=== PATIENT | female | born 1955 | race Caucasian/White ===

== ENCOUNTER 2017-08-30 13:17 | Emergency (ER) | payer OTHER ==
[~2017-08-30] VITALS: Ht 154.9 cm; Wt 54.4 kg
--- NOTE | 2017-08-30 13:32 | ED CARDIAC/CP/PALPITATIONS ---
History of Present Illness General Chief Complaint: Chest Pain Stated Complaint: SOB,DIZZINESS Source: patient Exam Limitations: no limitations Vital Signs & Intake/Output Vital Signs & Intake/Output Vital Signs Date Time Temp Pulse Resp B/P B/P Pulse O2 O2 Flow FiO2 Mean Ox Delivery Rate 08/30 1810 96.8 61 16 116/59 98 Room Air 08/30 1517 97.4 56 16 124/60 98 Room Air 08/30 1359 100 08/30 1358 57 20 141/71 100 Room Air 08/30 1332 96.6 64 18 165/105 95 Room Air Allergies Coded Allergies: meperidine (From DEMEROL) (Severe, RASH, HIVES 08/30/17) Reconcile Medications Amlodipine Besylate 5 MG TABLET 1 TAB PO DAILY HTN (Reported) Amlodipine Besylate (Norvasc) 5 MG TABLET 1.5 TAB PO DAILY HTN Aspirin (Aspirin*) 81 MG TAB.CHEW 1 TAB PO DAILY CARDIAC (Reported) Atenolol 50 MG TABLET 1 TAB PO DAILY HTN (Reported) Biotin 5,000 MCG TAB.RAPDIS 1 TAB PO DAILY SUPPLEMENT (Reported) [place] (Unknown Strength) POWDER (Unknown Dose) PO DAILY SUPPLEMENT (Reported) Calcium (Elemental-Fr Calcarb) (Calcium) 600 MG CALCIUM (1,500 MG) TABLET 1 TAB PO BID SUPPLEMENT (Reported) Cholecalciferol (Vitamin D3) (Vitamin D3) 400 UNIT TABLET 2 TAB PO BID SUPPLEMENT (Reported) Cinnamon Bark (Cinnamon) 500 MG CAPSULE 2 CAP PO DAILY SUPPLEMENT (Reported) Cranberry Conc/Ascorbic Acid (Cranberry Plus Vitamin C Sftgl) 4,200 MG-20 MG CAPSULE 1 CAP PO DAILY SUPPLEMENT (Reported) Flaxseed Oil (Flax Seed Oil) (Unknown Strength) CAPSULE (Unknown Dose) PO DAILY SUPPLEMENT (Reported) Ginkgo Biloba 60 MG CAPSULE 1 CAP PO DAILY SUPPLEMENT (Reported) Glucosamine/Chondroitin Sulf A (Glucosamine-Chondroitin Cap) (Unknown Strength) CAPSULE (Unknown Dose) PO DAILY SUPPLEMENT (Reported) Turmeric Root Extract (Turmeric) 500 MG CAPSULE 1 CAP PO DAILY SUPPLEMENT ( Reported) Vitamin B Complex & Vit C No.4 (Super B Complex) (Unknown Strength) TABLET ( Unknown Dose) PO DAILY SUPPLEMENT (Reported) Triage Nurses Notes Reviewed? yes Onset: Gradual Duration: week(s): (1) Timing: recent history Associated Symptoms: LIGHTHEADED, DIZZINESS HPI: 62 year old female presents to the ER for chief complaint of intermittent chest heaviness and dizziness that worsening this morning while she was at work. She has been having episodes on and off for the past week and scheduled an appointment with Dr Lopes to discuss her symptoms. Today she became very lightheaded requiring her to hold onto the jimenez which frightened her and caused her to come for evaluation. She denies any chest pain today. Symptoms seem to be worse with change in position. No headache, blurred vision, ringing in the ears or confusion. No shortness of berath or palpitations. Past History Travel History Traveled to [place] past 21 day No Medical History Any Pertinent Medical History? see below for history Cardiovascular: hypertension Surgical History Surgical History: non-contributory Psychosocial History What is your primary language Vietnamese ETOH Use: denies use Illicit Drug Use: denies illicit drug use Family History Hx Contributory? No Review of Systems Review of Systems Constitutional: Reports: weakness. Denies: chills, fever. EENTM: Reports: no symptoms. Respiratory: Denies: cough, short of breath. Cardiovascular: Reports: chest pain. Denies: palpitations, peripheral edema, syncope. GI: Denies: abdominal pain. Genitourinary: Denies: discharge, dysuria, frequency. Musculoskeletal: Reports: no symptoms. Skin: Reports: no symptoms. Neurological/Psychological: Reports: see HPI (dizzy, lightheaded). Hematologic/Endocrine: Denies: bruising, bleeding, polyuria, polydipsia. Immunologic/Allergic: Reports: no symptoms. All Other Systems: Reviewed and Negative Physical Exam Physical Exam General Appearance: well developed/nourished, alert, awake, anxious, mild distress Head: atraumatic, normal appearance Eyes: Bilateral: normal appearance, PERRL, EOMI. Ears, Nose, Throat: normal pharynx, hearing grossly normal Neck: normal inspection, supple, full range of motion Respiratory: normal breath sounds, chest non-tender, no respiratory distress Cardiovascular: regular rate/rhythm, normal peripheral pulses Gastrointestinal: normal bowel sounds, soft, non-tender Extremities: normal inspection, normal capillary refill, normal range of motion, no edema Neurologic/Psych: no motor/sensory deficits, awake, alert, oriented x 3, normal gait Skin: intact, normal color, warm/dry Comments: NEGATIVE GODWIN-HALLPIKE TEST Core Measures ACS in differential dx? Yes CVA/TIA Diagnosis No Sepsis Present: No Sepsis Focused Exam Completed? No Progress Differential Diagnosis: AMI, aortic dissection, CVA, TIA, VERTIGO, MENIERES, URI , UNSTABLE ANGINA, HYPERTENSIVE URGENCY, HYPERTENSIVE CRISIS Plan of Care: Orders Procedure Date/time Status Regular Diet 08/31 B Active TROPONIN LEVEL 08/30 1715 Complete EKG 08/30 1715 Active MISTAKE 08/30 1340 Active Telemetry/Computer Publisher 08/30 1340 Active FingerStick- Glucose 08/30 1340 Active URINALYSIS 08/30 1340 Complete TROPONIN LEVEL 08/30 1340 Complete PARTIAL THROMBOPLASTIN TIME 08/30 1340 Complete PROTHROMBIN TIME 08/30 1340 Complete COMPREHENSIVE METABOLIC PANEL 08/30 1340 Complete CBC WITHOUT DIFFERENTIAL 08/30 1340 Complete EKG 08/30 1318 Active Laboratory Tests 08/30/17 1754: Troponin I < 0.01 08/30/17 1449: Urine Color YEL, Urine Clarity CLEAR, Urine pH 6.0, Ur Specific [place] 1.015, Urine Protein NEG, Urine Ketones NEG, Urine Nitrite NEG, Urine Bilirubin NEG, Urine Urobilinogen 0.2, Ur Leukocyte Esterase NEG, Ur Microscopic EXAM NOT REQUIRED, Urine Hemoglobin NEG, Urine Glucose NEG 08/30/17 1350: Anion Gap 14, Estimated GFR > 60, BUN/Creatinine Ratio 28.8 H, Glucose 100 H, Calcium 9.3, Total Bilirubin 0.4, AST 36, ALT 59 H, Alkaline Phosphatase 107, Troponin I < 0.01, Total Protein 6.7, Albumin 4.4, Globulin 2.3, Albumin/ Globulin Ratio 1.9, PT 11.3, INR 1.08, APTT 27, CBC w Diff NO MAN DIFF REQ, RBC 4.60, MCV 76.6 L, MCH 24.9 L, RDW 15.4 H, MPV 7.7, Gran % 70.9, Lymphocytes % 21.2, Monocytes % 6.4, Eosinophils % 1.2, Basophils % 0.3, Absolute Granulocytes 4.7, Absolute Lymphocytes 1.4, Absolute Monocytes 0.4, Absolute Eosinophils 0.1, Absolute Basophils 0, PUBS MCHC 32.[address] HEAD WNL, EKG NORMAL SINUS. SEEN AND EVALUATED BY DR REDDY IN THE ED. WILL STAY FOR REPEAT TROPONIN/EKG. REPEAT TROPONIN NEGATIVE, PATIENT FEELING MUCH BETTER. DISCUSSED BP MEDICATION CHANGES SUGGESTED BY DR REDDY AND JACKELYN WILL BEGIN MONITORING HER BLOOD PRESSURE AT HOME AND FOLLOW UP WITH DR LOPES IN THE OFFICE. Diagnostic Imaging: Viewed by Me: CT Scan. Discussed w/RAD: CT Scan. Radiology Impression: PATIENT: THOMAS RITCHIE PRESENT AGE: 62 PATIENT ACCOUNT NO: [id number] : 53 LOCATION: [facility] ORDERING PHYSICIAN: Cammy Barriga MD SERVICE DATE: 08/30/17 EXAM TYPE: CAT - CT HEAD WO IV CONTRAST EXAMINATION: CT HEAD WITHOUT CONTRAST CLINICAL INFORMATION: Headache and dizziness; question mass or intracranial hemorrhage. COMPARISON: None. TECHNIQUE: Contiguous axial imaging was performed from the skull base to vertex without intravenous administration of contrast. DLP: 549.25 mGy-cm FINDINGS: There is no evidence of acute intracranial hemorrhage or territorial infarction. No abnormal mass effect or midline shift is seen. Triplett to white matter differentiation is well preserved. No extra-axial fluid collections are identified. The ventricles are normal in size. There is no abnormal attenuation within the brain parenchyma. The osseous structures and soft tissues are normal. There are physiologic bilateral basal ganglia calcifications. The mastoid air cells and visualized portions of the paranasal sinuses are well aerated. IMPRESSION: No acute intracranial pathology. DICTATED BY: Malik Salgado MD DATE/TIME DICTATED:08/30/171517 COOPER HELPER: BRANDY DATE/TIME TRANSCRIBED:08/30/171517 CONFIDENTIAL, DO NOT COPY WITHOUT APPROPRIATE AUTHORIZATION. <Electronically signed in Other Vendor System> SIGNED BY: Malik Salgado MD 08/30/17 1526 Initial ED EKG: NSR Repeat EKG: unchanged Departure Departure Time of Disposition: 1855 Disposition: HOME OR SELF CARE Condition: Stable Clinical Impression Primary Impression: Chest pain Secondary Impressions: Vertigo Referrals: Nam CARD,Larry (PCP/Family) Rhonda CARD PHD,Himanshu Mendes Additional Instructions: INCREASE NORVASC TO 7.5 MG DAILY, STAY ON ATENOLOL CHECK YOUR BLOOD PRESSURE REGULARLY Departure Forms: Customer Survey General Discharge Information Prescriptions: Current Visit Scripts Amlodipine Besylate (Norvasc) 1.5 TAB PO DAILY #30 TAB Critical Care Note Critical Care Note Critical Care Time: non-applicable
[2017-08-30] MEDS ORDERED: AMLODIPINE BESYL5 M1 PO (13:59)
[2017-08-30] MEDS ORDERED: ASPIRIN81 M4 PO (13:59)
[2017-08-30] MEDS ORDERED: ATENOLOL50 M1 PO (13:59)
[2017-08-30 14:07] LABS: ABSOLUTE BASOPHIL COUNT 0 /CUMM (0.0-0.2); ABSOLUTE EOSINOPHIL COUNT 0.1 /CUMM (0.0-0.7); ABSOLUTE GRANULOCYTE CT 4.7 /CUMM (1.4-6.5); ABSOLUTE LYMPH COUNT 1.4 /CUMM (1.2-3.4); ABSOLUTE MONOCYTE COUNT 0.4 /CUMM (0.10-0.60); BASOPHIL % 0.3 % (0.0-2.0); EOSINOPHIL % 1.2 % (0-5); GRANULOCYTE % 70.9 % (42.2-75.2); HEMATOCRIT 35.3 % (37-47); MEAN CORPUSCULAR HGB 24.9 PG (27.0-31.0); MEAN CORPUSCULAR HGB CONC 32.5 G/DL (33.0-37.0); MEAN CORPUSCULAR VOLUME 76.6 FL (81.0-99.0); MEAN PLATELET VOLUME 7.7 FL (7.4-10.4); PLATELET COUNT 291 /CUMM (130-400); RBC DISTRIBUTION WIDTH 15.4 % (11.5-14.5); WHITE BLOOD CELL COUNT 6.7 /CUMM (4.8-10.8)
[2017-08-30 14:17] LABS: PT 11.3 SEC (9.4-12.5); PTT 27 SEC (25-37)
--- NOTE | 2017-08-30 15:26 | CT SCAN REPORT ---
EXAMINATION: CT HEAD WITHOUT CONTRAST CLINICAL INFORMATION: Headache and dizziness; question mass or intracranial hemorrhage. COMPARISON: None. TECHNIQUE: Contiguous axial imaging was performed from the skull base to vertex without intravenous administration of contrast. DLP: 549.25 mGy-cm FINDINGS: There is no evidence of acute intracranial hemorrhage or territorial infarction. No abnormal mass effect or midline shift is seen. Triplett to white matter differentiation is well preserved. No extra-axial fluid collections are identified. The ventricles are normal in size. There is no abnormal attenuation within the brain parenchyma. The osseous structures and soft tissues are normal. There are physiologic bilateral basal ganglia calcifications. The mastoid air cells and visualized portions of the paranasal sinuses are well aerated. IMPRESSION: No acute intracranial pathology.
--- NOTE | 2017-08-30 17:50 | Cons- Cardiology ---
General Information and HPI Consulting Request Date of Consult: 08/30/17 Requested By: Dr. 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 The patient had been doing well up until recently. She has recently noted episodes of lightheadedness/ dizziness with no loss of consciousness. These episodes appear to be somewhat positional, more common in the upright position. However, they also occur with rapid head movement, etc. Today, the patient noted a sense of chest pressure. She has had this symptom intermittently as well. She ultimately came to the emergency room for further evaluation. On arrival to the emergency room, the patient was hypertensive with a blood pressure of 170/105. Her heart rate was otherwise normal. Her ECG was normal. The patient had an upcoming appoint with Dr. Ellis called and arranged to have the appointment moved up to a sooner time so that she could see him for evaluation of the aforementioned symptoms. The patient notes that she is able to go to the gym and do her exercises several times a week, including elliptical training, with no exertional symptoms. The patient does not check her blood pressure at home. Allergies/Medications Allergies: Coded Allergies: meperidine (From DEMEROL) (Severe, RASH, HIVES 08/30/17) Home Med List: Amlodipine Besylate 5 MG TABLET 1 TAB PO DAILY HTN (Reported) Aspirin (Aspirin*) 81 MG TAB.CHEW 1 TAB PO DAILY CARDIAC (Reported) Atenolol 50 MG TABLET 1 TAB PO DAILY HTN (Reported) Current Medications: Current Medications Sig/Melissa Start time Last Medication Dose Route Stop Time Status Admin Meclizine HCl 12.5 MG ONCE ONE 08/30 1530 DC 08/30 PO 08/30 1531 1525 Meclizine HCl 0 .STK-MED ONE 08/30 1527 DC PO Past History Travel History Traveled to [place] past 21 day No Medical History Neurological: NONE EENT: NONE Cardiovascular: hypertension Respiratory: NONE Gastrointestinal: NONE Hepatic: NONE Renal: NONE Musculoskeletal: NONE Psychiatric: NONE Endocrine: NONE Blood Disorders: NONE Cancer(s): NONE GAME MODERATOR/Reproductive: NONE Exam & Diagnostic Data Vital Signs and I&O Vital Signs Date Time Temp Pulse Resp B/P B/P Pulse O2 O2 Flow FiO2 Mean Ox Delivery Rate 08/30 1517 97.4 56 16 124/60 98 Room Air 08/30 1359 100 08/30 1358 57 20 141/71 100 Room Air 08/30 1332 96.6 64 18 165/105 95 Room Air Intake & Output 08/30 1600 08/30 0800 08/30 0000 08/29 1600 08/29 0800 08/29 0000 Intake Total Output Total 100 Balance -100 Output, Urine 100 Patient 120 lb Weight Weight Reported by Patient Measurement Method Physical Exam: general: Well-developed, well-nourished, white female. Alert and oriented 3. Mild to moderate headache. No other acute distress. HEENT: Normal Neck: JVP normal, carotid upstrokes normal bilaterally with no bruits Chest: Clear bilaterally Heart: Regular S4, S1, S2. 1/6 systolic murmur left sternal border Abdomen: Unremarkable Extremities: Normal Peripheral vascular: Normal bilaterally Neurologic: Grossly normal/nonfocal. Mild right lateral nystagmus noted Labs/Rickey Results: Laboratory Tests 08/30 08/30 1449 1350 Chemistry Sodium (137 - 145 mmol/L) 141 Potassium (3.5 - 5.1 mmol/L) 4.1 Chloride (98 - 107 mmol/L) 102 Carbon Dioxide (22 - 30 mmol/L) 25 Anion Gap (5 - 16) 14 BUN (7 - 17 mg/dL) 23 H Creatinine (0.5 - 1.0 mg/dL) 0.8 Estimated GFR (>60 ml/min) > 60 BUN/Creatinine Ratio (7 - 25 %) 28.8 H Glucose (65 - 99 mg/dL) 100 H Calcium (8.4 - 10.2 mg/dL) 9.3 Total Bilirubin (0.2 - 1.3 mg/dL) 0.4 AST (14 - 36 U/L) 36 ALT (9 - 52 U/L) 59 H Alkaline Phosphatase (<127 U/L) 107 Troponin I (< 0.11 ng/ml) < 0.01 Total Protein (6.3 - 8.2 g/dL) 6.7 Albumin (3.5 - 5.0 g/dL) 4.4 Globulin (1.9 - 4.2 gm/dL) 2.3 Albumin/Globulin Ratio (1.1 - 2.2 %) 1.9 Coagulation PT (9.4 - 12.5 SEC) 11.3 INR (0.90 - 1.19) 1.08 APTT (25 - 37 SEC) 27 Hematology CBC w Diff NO MAN DIFF REQ WBC (4.8 - 10.8 /CUMM) 6.7 RBC (4.20 - 5.40 /CUMM) 4.60 Hgb (12.0 - 16.0 G/DL) 11.5 L Hct (37 - 47 %) 35.3 L MCV (81.0 - 99.0 FL) 76.6 L MCH (27.0 - 31.0 PG) 24.9 L RDW (11.5 - 14.5 %) 15.4 H Plt Count (130 - 400 /CUMM) 291 MPV (7.4 - 10.4 FL) 7.7 Gran % (42.2 - 75.2 %) 70.9 Lymphocytes % (20.5 - 51.1 %) 21.2 Monocytes % (1.7 - 9.3 %) 6.4 Eosinophils % (0 - 5 %) 1.2 Basophils % (0.0 - 2.0 %) 0.3 Absolute Granulocytes (1.4 - 6.5 /CUMM) 4.7 Absolute Lymphocytes (1.2 - 3.4 /CUMM) 1.4 Absolute Monocytes (0.10 - 0.60 /CUMM) 0.4 Absolute Eosinophils (0.0 - 0.7 /CUMM) 0.1 Absolute Basophils (0.0 - 0.2 /CUMM) 0 PUBS MCHC (33.0 - 37.0 G/DL) 32.5 L Urines Urine Color (YEL,AMB,STR) YEL Urine Clarity (CLEAR) CLEAR Urine pH (5.0 - 8.0) 6.0 Ur Specific [place] (1.001 - 1.035) 1.015 Urine Protein (NEG,<30 MG/DL) NEG Urine Ketones (NEG) NEG Urine Nitrite (NEG) NEG Urine Bilirubin (NEG) NEG Urine Urobilinogen (0.1 - 1.0 EU/dl) 0.2 Ur Leukocyte Esterase (NEG) NEG Ur Microscopic EXAM NOT REQUIRED Urine Hemoglobin (NEG) NEG Urine Glucose (N MG/DL) NEG Diagnostic Data EKG Results normal sinus rhythm with no severe abnormalities Other Results head CT: FINDINGS: There is no evidence of acute intracranial hemorrhage or territorial infarction. No abnormal mass effect or midline shift is seen. Triplett to white matter differentiation is well preserved. No extra-axial fluid collections are identified. The ventricles are normal in size. There is no abnormal attenuation within the brain parenchyma. The osseous structures and soft tissues are normal. There are physiologic bilateral basal ganglia calcifications. The mastoid air cells and visualized portions of the paranasal sinuses are well aerated. IMPRESSION: No acute intracranial pathology. Assessment/Plan Assessment/Plan assessment: 1. Dizziness/lightheadedness 2. Chest pressure 3. Uncontrolled hypertension 4. New onset headache Recommendations: -Check troponin and all labs. Repeat troponin 4 hours -Repeat ECG in 4 hours -Head CT -If the above are unremarkable, I would increase the patient's amlodipine to 7.5 mg daily for improved blood pressure control. -Trial of meclizine 12.5 mg 3 times a day -Close follow-up with Dr. Ellis as outpatient for further evaluation to include probable echocardiogram, stress test, etc. Consult Acknowledgment - Thank you for your consult request.
[2017-08-30] MEDS ORDERED: SUPER B COMPLE150 MG PO (18:06)
[2017-08-30] MEDS ORDERED: VITAMIN D3400 UNI1 PO (18:06)
[2017-08-30] MEDS ORDERED: BIOTIN5000 MCG PO (18:06)
[2017-08-30] MEDS ORDERED: CALCIUM600 M3 PO (18:06)
[2017-08-30] MEDS ORDERED: CINNAMON500 M1 PO (18:07)
[2017-08-30] MEDS ORDERED: FLAX SEED OIL1000 M2 PO (18:07)
[2017-08-30] MEDS ORDERED: GLUCOSAMINE-CH1 EA32 PO (18:08)
[2017-08-30] MEDS ORDERED: GINKGO BILOBA60 M1 PO (18:08)
[2017-08-30] MEDS ORDERED: CRANBERRY PLUS1 EAC1 PO (18:09)
[2017-08-30] MEDS ORDERED: BORON1 GM PO (18:09)
[2017-08-30] MEDS ORDERED: TURMERIC500 M2 PO (18:09)
[2017-08-30 18:10] VITALS: BP 116/59
[2017-08-30] MEDS ORDERED: NORVASC5 M1 PO (18:58)
== END 2017-08-30 19:12 ==
LOC: ERH 13:17
PROVIDERS: Emergency Medicine
DX: R42 Dizziness and giddiness (principal); R07.89 Other chest pain
CPT/HCPCS: 81003; 93005; 93010